=== PATIENT | male | born 1990 | race Caucasian/White ===

== ENCOUNTER 2017-11-02 12:05 | Emergency (ER) | payer OTHER ==
--- NOTE | 2017-11-02 15:52 | RAD REPORT ---
EXAM DESCRIPTION: [facility]11/02/2017 3:45 pm CLINICAL HISTORY: Right leg pain and swelling. COMPARISON: None. FINDINGS: Right common femoral, superficial femoral, popliteal and right posterior tibial veins are compressible and demonstrate augmentation. Doppler demonstrates good flow. IMPRESSION: No evidence of deep venous thrombosis involving the right lower extremity.
[2017-11-02 15:54] LABS: Urine Blood NEGATIVE (NEG); Urine Glucose NEGATIVE (NEG); Urine Protein NEGATIVE (NEG); Urine Specific Gravity 1.025 (1.005-1.030); Urine pH 5.5 (5.0-7.0)
[2017-11-02 16:14] LABS: Absolute Lymphocytes (CBC) 2.2 K/uL (0.7-4.9); Absolute Monocytes 0.5 K/uL (0.1-1.3); Absolute Neutrophil 7.7 K/uL (1.8-8.0); Basophils % 0.3 % (0-1.3); Eosinophils % 1.7 % (0-4.4); Hematocrit 44.7 % (39.6-49.0); MCH 30.4 pg (27.0-35.0); MCV 89.8 fL (80-100); MPV 8.9 fL (7.6-11.3); RBC Red Blood Cell Count 4.97 M/uL (4.33-5.43)
[2017-11-02 16:26] LABS: Potassium 3.9 mEq/L (3.6-5.0)
[2017-11-02 16:29] LABS: Bilirubin Total 0.4 mg/dL (0.3-1.2); Protein, Total 8.2 g/dL (6.0-8.3)
--- NOTE | 2017-11-02 17:04 | EDPHYS ---
Physician Documentation [facility] Name: Shon Cuellar Age: 27 yrs Sex: Male : 1990 Arrival Date: 11/02/2017 Time: 12:09 Bed 25 Private MD: Unknown, Unknown ED Physician Conor Salazar HPI: 11/02 15:06 This 27 yrs old Male presents to ER via Ambulatory with complaints of Foot jmm Pain. 15:06 The patient presents with pain, that is acute, swelling. The complaints affect the jmm dorsum of left foot, lateral aspect of right foot, medial aspect of right foot and dorsum of right foot. Onset: The symptoms/episode began/occurred gradually, 1 day(s) ago. This is a 27 year old male with no chronic medical conditions that presents to the ED with swelling to the right and left foot. Patient states having a similar episode 1 year ago when diagnosed with cellulitis. The patient denies fever. patient states he is [place] often [place]. . Historical: - Allergies: 12:11 No Known Allergies; sv - Home Meds: 12:11 None [Active]; sv - PMHx: 12:11 None; sv - PSHx: 12:11 None; sv - Immunization history:: Adult Immunizations up to date, Last tetanus immunization: < 5 years ago. - Social history:: Smoking status: Patient uses tobacco products, chewing tobacco. - Ebola Screening: : No symptoms or risks identified at this time. ROS: 15:06 Constitutional: Negative for fever, chills, and weight loss, Cardiovascular: Negative jmm for chest pain, palpitations, and edema, Respiratory: Negative for shortness of breath, cough, wheezing, and pleuritic chest pain. 15:06 MS/extremity: Positive for pain, swelling. 15:06 Skin: Positive for erythema. 15:06 All other systems are negative. Exam: 15:06 Head/Face: atraumatic. jmm 15:06 Constitutional: The patient appears in no acute distress, alert, awake. 15:06 Cardiovascular: Rate: normal, Rhythm: regular, Pulses: no pulse deficits are appreciated. 15:06 Respiratory: the patient does not display signs of respiratory distress, Respirations: normal. 15:06 Abdomen/GI: Inspection: abdomen appears normal. 15:06 Musculoskeletal/extremity: swelling noted to the right lower leg. swelling is also noted to the left foot. no pitting edema appreciated. Full dorsalis pedis pulse bilaterally, compartments are soft, NVI. 15:06 Skin: mild erythema noted to the right lower leg and foot, no erythema noted to the left foot. 15:06 Neuro: Orientation: is normal, Mentation: is normal. Vital Signs: 12:11 BP 152 / 83; Pulse 70; Resp 16; Temp 98.6; Pulse Ox 100% ; Weight 95.25 kg; Height 5 sv ft. 11 in. (180.34 cm); Pain 2/10; 15:54 BP 128 / 69; Pulse 82; Resp 16; Pulse Ox 98% on R/A; eb1 12:11 Body Mass Index 29.29 (95.25 kg, 180.34 cm) sv MDM: 14:58 Patient medically screened. [facility] 15:06 Differential diagnosis: cellulitis, DVT. [facility] 17:24 Data reviewed: vital signs, nurses notes, lab test result(s), radiologic studies, [facility] ultrasound. ED course: Symptoms appear consistent with previous diagnosis of cellulitis. labs and imaging studies are unremarkable. patient will be prescribed antibiotics. patient is advised to return to the ed if he develops worsening symptoms. patient understood and agrees with the plan of care. . 17:24 Counseling: I had a detailed discussion with the patient and/or guardian regarding: the [facility] presence of at least one elevated blood pressure reading (>120/80) during this emergency department visit. 11/02 15:02 Order name: CBC with Diff; Complete Time: 16:44 [facility] 11/02 15:02 Order name: CMP; Complete Time: 16:44 [facility] 11/02 15:02 Order name: Lactate; Complete Time: 16:44 [facility] 11/02 15:02 Order name: Blood Culture Adult (2) [facility] 11/02 15:42 Order name: Urine Dipstick--Ancillary (enter results) 1 11/02 15:43 Order name: Urine Dipstick-Ancillary; Complete Time: 16:03 [facility] 11/02 15:02 Order name: Saline Lock; Complete Time: 16:35 [facility] 11/02 15:03 Order name: US Extremity Venous Unilateral Ltd; Complete Time: 16:03 [facility] Administered Medications: 17:21 Drug: Doxycycline 100 mg Route: PO; eb1 17:53 Follow up: Response: No adverse reaction eb1 Disposition: 11/02/17 17:04 Discharged to Home. Impression: Cellulitis of right lower limb. - Condition is Stable. - Discharge Instructions: Cellulitis. - Prescriptions for Cephalexin 500 mg Oral Capsule - take 1 capsule by ORAL route every 6 hours for 10 days; 40 capsule. Doxycycline Hyclate 100 mg Oral Tablet - take 1 tablet by ORAL route every 12 hours; 20 tablet. - Medication Reconciliation Form, Thank You Letter, Antibiotic Education, Prescription Opioid Use, Work release form form. - Follow up: Private Physician; When: 1 - 2 days; Reason: Re-evaluation by your physician. Addendum: 11/06/2017 12:05 Co-signature as Attending Physician, Conor Salazar MD. g s Signatures: Dispatcher [employer] EDIrina Tai, RN RN Agustín New PA PA jmm Starr, Gregory, MD MD Lissy Mckeon RN RN eb1 Corrections: (The following items were deleted from the chart) 11/02 17:54 17:04 11/02/2017 17:04 Discharged to Home. Impression: Cellulitis of right lower limb. eb1 Condition is Stable. Forms are Medication Reconciliation Form, Thank You Letter, Antibiotic Education, Prescription Opioid Use. Follow up: Private Physician; When: 1 - 2 days; Reason: Re-evaluation by your physician. luke
--- NOTE | 2017-11-02 17:04 | ER ---
Nurse's Notes [facility] Name: Shon Cuellar Age: 27 yrs Sex: Male : 1990 Arrival Date: 11/02/2017 Time: 12:09 Bed 25 Private MD: Unknown, Unknown Diagnosis: Cellulitis of right lower limb Presentation: 11/02 12:09 Presenting complaint: Patient states: bilateral foot swelling and redness, right > sv left, started last night. Transition of care: patient was not received from another setting of care. Onset of symptoms was November 01, 2017. Care prior to arrival: None. 12:09 Method Of Arrival: Ambulatory sv 12:09 Acuity: MANNY 3 sv 15:52 Risk Assessment: Do you want to hurt yourself or someone else? Patient reports no eb1 desire to harm self or others. Initial Sepsis Screen: Does the patient meet any 2 criteria? No. Patient's initial sepsis screen is negative. Does the patient have a suspected source of infection? No. Patient's initial sepsis screen is negative. Triage Assessment: 12:09 General: Appears in no apparent distress. uncomfortable, Behavior is calm, cooperative, sv appropriate for age. Pain: Complains of pain in right foot and left foot Pain currently is 2 out of 10 on a pain scale. Pain began 1 day ago. Is continuous. Neuro: Level of Consciousness is awake, alert, obeys commands, Oriented to person, place, time, situation, Moves all extremities. Full function Gait is steady, Speech is normal. Respiratory: Respiratory effort is even, unlabored, Respiratory pattern is regular, symmetrical. Derm: Skin is normal. Musculoskeletal: Range of motion: intact in all extremities, Swelling present in right foot and left foot right foot has greater swelling than the left, redness noted to bilateral feet as well. Historical: - Allergies: 12:11 No Known Allergies; sv - Home Meds: 12:11 None [Active]; sv - PMHx: 12:11 None; sv - PSHx: 12:11 None; sv - Immunization history:: Adult Immunizations up to date, Last tetanus immunization: < 5 years ago. - Social history:: Smoking status: Patient uses tobacco products, chewing tobacco. - Ebola Screening: : No symptoms or risks identified at this time. Screenin:51 Abuse screen: Denies threats or abuse. Nutritional screening: No deficits noted. eb1 Tuberculosis screening: No symptoms or risk factors identified. Fall Risk None identified. Assessment: 15:49 General: Appears uncomfortable, well groomed, Behavior is calm, cooperative, eb1 appropriate for age. Pain: Complains of pain in right foot. Neuro: No deficits noted. Cardiovascular: No deficits noted. Respiratory: No deficits noted. GI: No deficits noted. : No deficits noted. Derm: Skin is pink, warm \T\ dry. red in right foot Skin temperature is warm right foot hot and inflammed. Musculoskeletal: Reports pain in right foot. Vital Signs: 12:11 BP 152 / 83; Pulse 70; Resp 16; Temp 98.6; Pulse Ox 100% ; Weight 95.25 kg; Height 5 sv ft. 11 in. (180.34 cm); Pain 2/10; 15:54 BP 128 / 69; Pulse 82; Resp 16; Pulse Ox 98% on R/A; eb1 12:11 Body Mass Index 29.29 (95.25 kg, 180.34 cm) sv ED Course: 12:09 Patient arrived in ED. sb2 12:09 Unknown, Unknown is Private Physician. sb2 12:11 Triage completed. sv 12:12 Arm band placed on left wrist. sv 12:12 Patient placed in waiting room, Patient notified of wait time. sv 14:24 Agustín Breaux PA is PHCP. jmm 14:24 Conor Salazar MD is Attending Physician. jmm 14:29 Patient placed in an exam room, on a stretcher. sv 15:28 Ultrasound completed. Patient tolerated well. ap2 15:45 Missed attempt(s): 22 gauge in left forearm. Bleeding controlled, band aid applied, tt1 catheter tip intact. 15:52 Patient has correct armband on for positive identification. Bed in low position. Call eb1 light in reach. Side rails up X 1. 16:05 Inserted saline lock: 22 gauge in left antecubital area, using aseptic technique. Blood tt1 collected. 16:34 Urine Dipstick--Ancillary (enter results) Sent. eb1 16:38 No provider procedures requiring assistance completed. eb1 17:54 IV discontinued, intact, bleeding controlled, No redness/swelling at site. Pressure eb1 dressing applied. Administered Medications: 17:21 Drug: Doxycycline 100 mg Route: PO; eb1 17:53 Follow up: Response: No adverse reaction eb1 Outcome: 17:04 Discharge ordered by MD. butler 17:53 Discharged to home ambulatory. eb1 17:53 Condition: stable 17:53 Discharge instructions given to patient, Instructed on discharge instructions, follow up and referral plans. medication usage, Demonstrated understanding of instructions, follow-up care, medications, Prescriptions given X 2. 17:54 Patient left the ED. eb1 Signatures: Dispatcher [employer] Irina Ferrer, RN RN Agustín New PA PA jmm Thymes, Tracy tt1 Mona Brizuela ap2 Bharti Christina sb2 Lissy Mckeon RN RN eb1 Corrections: (The following items were deleted from the chart) 15:46 15:45 In radiology for Extremity Venous Uni [email or web address] ap2 16:07 16:05 Inserted saline lock: 22 gauge in left antecubital area, using aseptic technique. tt1 tt1
[2017-11-02] MEDS ORDERED: DOXYCYCLINE 100 MG CAP PO ONE (17:17)
[2017-11-02 18:07] VITALS: TEMP 98.6
[2017-11-02 18:08] VITALS: BP 128/69; O2SAT 98
== END 2017-11-02 17:54 | disposition home or self-care (01) ==
LOC: ER 12:05
DX: L03.115 Cellulitis of right lower limb (principal); Z72.0 Tobacco use
CPT/HCPCS: 36415; 80053; 81003; 83605; 85025; 87040; 93971; 99284

== ENCOUNTER 2023-03-10 00:37 | Emergency (ER) | payer BC ==
[2023-03-10 01:15] LABS: Absolute Lymphocytes (CBC) 1.7 K/uL (0.7-4.9); Hematocrit 39.5 % (39.6-49.0); Lymphocytes % 13.9 % (15.3-44.8); MCV 89.4 fL (80-100); MPV 7.9 fL (7.6-11.3); Platelets 247 thou/uL (152-406); RBC Red Blood Cell Count 4.42 M/uL (4.33-5.43)
[2023-03-10] MEDS ORDERED: DIPHENHYDRAMINE 50 MG/ML VIAL ONE (01:15)
[2023-03-10] MEDS ORDERED: METHYLPREDNISOLONE 125 MG INJ ONE (01:15)
[2023-03-10] MEDS ORDERED: NA CHLORIDE 0.9% 1,000 ML ONE ×2 (01:15→02:44)
[2023-03-10] MEDS ORDERED: FAMOTIDINE 20 MG/2 ML VIAL IV ONE (01:15)
[2023-03-10 01:17] LABS: Protime INR 1.08
[2023-03-10 01:49] LABS: ALT/SGPT 24 U/L (16-61); AST/SGOT < 4 U/L (15-37); Alkaline Phosphatase 51 U/L (45-117); BUN Blood Urea Nitrogen 18 mg/dL (7-18); Bicarbonate 28 mEq/L (21-32); Bilirubin Total 0.3 mg/dL (0.2-1.0); C-Reactive Protein 2.97 mg/L (<3.00); Glomerular Filtration Rate 74 ml/min (=/>90); Glucose Level 105 mg/dL (74-106); Potassium 4.4 mEq/L (3.5-5.1); Protein, Total 7.6 g/dL (6.4-8.2); Sodium Level 138 mEq/L (136-145)
[2023-03-10] MEDS ORDERED: CEFAZOLIN SODIUM 1 GM/VIAL ONE (02:44)
[2023-03-10] MEDS ORDERED: SMZ./TMP. 800/160 MG TABLET ONE (02:44)
--- NOTE | 2023-03-10 02:50 | ER ---
Nurse's Notes [facility] Name: Shon Cuellar Age: 32 yrs Sex: Male : 1990 Arrival Date: 03/10/2023 Time: 00:37 Bed 7 Private MD: Diagnosis: Dermatitis, unspecified;Rash and other nonspecific skin eruption;Elevated white blood cell count, unspecified;Essential (primary) hypertension Presentation: 03/10 00:50 Chief complaint: Patient states: rash with hives that started Friday and has as6 progressively gotten worse. pt did see provider and has been taking Benadryl and steroids. Coronavirus screen: At this time, the client does not indicate any symptoms associated with coronavirus-19. Ebola Screen: No symptoms or risks identified at this time. Initial Sepsis Screen: Does the patient meet any 2 criteria? No. Patient's initial sepsis screen is negative. Does the patient have a suspected source of infection? No. Patient's initial sepsis screen is negative. Risk Assessment: Do you want to hurt yourself or someone else? Patient reports no desire to harm self or others. Onset of symptoms was March 07, 2023. 00:50 Acuity: MANNY 3 as6 00:50 Method Of Arrival: Ambulatory as6 Triage Assessment: 00:50 General: Appears uncomfortable, Behavior is calm, cooperative, appropriate for age. bp Pain: Denies pain. Historical: - Allergies: 00:50 No Known Allergies; as6 - Home Meds: 00:50 None [Active]; as6 - PMHx: 00:50 None; as6 - PSHx: 00:50 None; as6 - Immunization history:: Client reports having NOT received the Covid vaccine. - Social history:: Smoking status: Patient reports use of chewing tobacco. Patient denies any tobacco usage or history of. Screenin:00 [facility] ED Fall Risk Assessment (Adult) History of falling in the last 3 months, bp including since admission No falls in past 3 months (0 pts). Abuse screen: Denies threats or abuse. Denies injuries from another. Nutritional screening: No deficits noted. Tuberculosis screening: No symptoms or risk factors identified. Assessment: 00:50 General: SEE TRIAGE NOTE. bp 02:00 Reassessment: No changes from previously documented assessment. Patient is alert, bp oriented x 3, equal unlabored respirations, skin warm/dry/pink. Respiratory: Airway is patent Respiratory effort is even, unlabored, Breath sounds are clear bilaterally. 03:00 Reassessment: DC ON HOLD FOR IVF. bp Vital Signs: 00:49 BP 167 / 105; Pulse 86; Resp 18 S; Temp 97.7(O); Pulse Ox 100% on R/A; Weight 104.33 kg as6 (R); Height 5 ft. 11 in. (R); Pain 5/10; 02:00 BP 128 / 88; Pulse 62; Resp 16; Pulse Ox 100% ; bp 03:19 BP 141 / 97; Pulse 76; Resp 16; Pulse Ox 100% ; bp 04:11 BP 136 / 82; Pulse 65; Resp 16; Pulse Ox 100% ; bp 00:49 Body Mass Index 32.08 (104.33 kg, 180.34 cm) as6 00:49 Pain Scale: Adult as6 ED Course: 00:41 Patient arrived in ED. mr 00:42 Jake Osborn MD is Attending Physician. david 00:49 Arm band placed on. as6 00:52 Triage completed. as6 01:00 Toni Musa, BEVERLY is Primary Nurse. jb4 01:00 Patient has correct armband on for positive identification. Bed in low position. Call bp light in reach. Side rails up X2. 01:00 Inserted saline lock: 22 gauge in left antecubital area, using aseptic technique. Blood bp collected. 04:10 No provider procedures requiring assistance completed. IV discontinued, intact, bp bleeding controlled, No redness/swelling at site. Pressure dressing applied. Administered Medications: 01:10 Drug: NS 0.9% IV 1000 ml IV at 1 bolus Per protocol; 1000 mL bolus Route: IV; Rate: 1 bp bolus; Site: left antecubital; 03:20 Follow up: IV Status: Completed infusion; IV Intake: 1000ml bp 01:10 Drug: diphenhydrAMINE IVP 50 mg IVP once Route: IVP; Site: left antecubital; bp 03:20 Follow up: Response: No adverse reaction bp 01:10 Drug: Famotidine IVP 40 mg IVP once; dilute with 10 mL 0.9% NaCl; give over 2 minutes bp Route: IVP; Site: left antecubital; 03:20 Follow up: Response: No adverse reaction bp 01:10 Drug: MethylPrednisoLONE IVP 125 mg IVP once Route: IVP; Site: left antecubital; bp 03:20 Follow up: Response: No adverse reaction bp 02:15 Drug: NS 0.9% IV 1000 ml IV at 1 bolus Per protocol; 1000 mL bolus Route: IV; Rate: 1 bp bolus; Site: left antecubital; 04:11 Follow up: IV Status: Completed infusion; IV Intake: 1000ml bp 02:15 Drug: ceFAZolin IVPB 2 grams IVPB once over 30 mins; (mix in 100 mL NS) Route: IVPB; bp Infused Over: 30 mins; Site: left antecubital; 04:11 Follow up: IV Status: Completed infusion; IV Intake: 100ml bp 02:15 Drug: Trimethoprim-Sulfamethoxazole PO (160 mg-800 mg (DS) 1 tablet PO once Route: PO; bp 03:20 Follow up: Response: No adverse reaction bp Intake: 03:20 IV: 1000ml; Total: 1000ml. bp 04:11 IV: 100ml; Total: 1100ml. bp 04:11 IV: 1000ml; Total: 2100ml. bp Outcome: 02:49 Discharge ordered by . david 04:10 Discharged to home ambulatory, bp 04:10 Condition: stable 04:10 Discharge instructions given to patient, Instructed on discharge instructions, follow up and referral plans. medication usage, Demonstrated understanding of instructions, follow-up care, medications, Prescriptions given X 4, 04:11 Patient left the ED. bp Signatures: Jake Osborn MD MD cha Rivera, Mary, Reg Reg mr Toni Musa, RN RN jb4 Esdras Gaona RN RN bp Aram Louis, BEVERLY RN as6 Corrections: (The following items were deleted from the chart) 00:50 00:50 Allergies: Unable to obtain; as6 as6
--- NOTE | 2023-03-10 02:50 | EDPHYS ---
Physician Documentation [facility] Name: Shon Cuellar Age: 32 yrs Sex: Male : 1990 Arrival Date: 03/10/2023 Time: 00:37 Bed 7 Private MD: ED Physician Jake Osborn HPI: 03/10 00:52 This 32 yrs old Male presents to ER via Ambulatory with complaints of david Allergic Reaction, Hives. 00:52 The patient presents with rash, redness of skin. Onset: The symptoms/episode david began/occurred 5 day(s) ago. Associated signs and symptoms: Pertinent positives: hives. Possible causes: The patient has no known obvious cause for the symptoms. At home the patient or guardian has treated the symptoms with Benadryl, steroids. Severity of symptoms: At their worst the symptoms were moderate in the emergency department the symptoms are unchanged. The patient has not experienced similar symptoms in the past. Historical: - Allergies: 00:50 No Known Allergies; as6 - Home Meds: 00:50 None [Active]; as6 - PMHx: 00:50 None; as6 - PSHx: 00:50 None; as6 - Immunization history:: Client reports having NOT received the Covid vaccine. - Social history:: Smoking status: Patient reports use of chewing tobacco. Patient denies any tobacco usage or history of. ROS: 00:53 Constitutional: Negative for fever, chills, and weight loss, Eyes: Negative for injury, david pain, redness, and discharge, ENT: Negative for injury, pain, and discharge, Neck: Negative for injury, pain, and swelling, Cardiovascular: Negative for chest pain, palpitations, and edema, Respiratory: Negative for shortness of breath, cough, wheezing, and pleuritic chest pain, Abdomen/GI: Negative for abdominal pain, nausea, vomiting, diarrhea, and constipation, Back: Negative for injury and pain, : Negative for injury, bleeding, discharge, and swelling, MS/Extremity: Negative for injury and deformity, Neuro: Negative for headache, weakness, numbness, tingling, and seizure, Psych: Negative for depression, anxiety, suicide ideation, homicidal ideation, and hallucinations, Allergy/Immunology: Negative for hives, rash, and allergies, Endocrine: Negative for neck swelling, polydipsia, polyuria, polyphagia, and marked weight changes, Hematologic/Lymphatic: Negative for swollen nodes, abnormal bleeding, and unusual bruising, 00:53 Skin: Positive for rash, of the buttocks, pelvis, right arm, left arm, right leg and left leg, Exam: 00:53 Constitutional: This is a well developed, well nourished patient who is awake, alert, david and in no acute distress. Head/Face: Normocephalic, atraumatic. Eyes: Pupils equal round and reactive to light, extra-ocular motions intact. Lids and lashes normal. Conjunctiva and sclera are non-icteric and not injected. Cornea within normal limits. Periorbital areas with no swelling, redness, or edema. ENT: Nares patent. No nasal discharge, no septal abnormalities noted. Tympanic membranes are normal and external auditory canals are clear. Oropharynx with no redness, swelling, or masses, exudates, or evidence of obstruction, uvula midline. Mucous membranes moist. Neck: Trachea midline, no thyromegaly or masses palpated, and no cervical lymphadenopathy. Supple, full range of motion without nuchal rigidity, or vertebral point tenderness. No Meningismus. Chest/axilla: Normal chest wall appearance and motion. Nontender with no deformity. No lesions are appreciated. Cardiovascular: Regular rate and rhythm with a normal S1 and S2. No gallops, murmurs, or rubs. Normal PMI, no JVD. No pulse deficits. Respiratory: Lungs have equal breath sounds bilaterally, clear to auscultation and percussion. No rales, rhonchi or wheezes noted. No increased work of breathing, no retractions or nasal flaring. Abdomen/GI: Soft, non-tender, with normal bowel sounds. No distension or tympany. No guarding or rebound. No evidence of tenderness throughout. Back: No spinal tenderness. No costovertebral tenderness. Full range of motion. Male : Normal genitalia with no discharge or lesions. Neuro: Awake and alert, GCS 15, oriented to person, place, time, and situation. Cranial nerves II-XII grossly intact. Motor strength 5/5 in all extremities. Sensory grossly intact. Cerebellar exam normal. Normal gait. Psych: Awake, alert, with orientation to person, place and time. Behavior, mood, and affect are within normal limits. 00:53 Skin: cellulitis, on the buttocks, pelvis, right arm, left arm, right leg and left leg, Vital Signs: 00:49 BP 167 / 105; Pulse 86; Resp 18 S; Temp 97.7(O); Pulse Ox 100% on R/A; Weight 104.33 kg as6 (R); Height 5 ft. 11 in. (R); Pain 5/10; 02:00 BP 128 / 88; Pulse 62; Resp 16; Pulse Ox 100% ; bp 03:19 BP 141 / 97; Pulse 76; Resp 16; Pulse Ox 100% ; bp 04:11 BP 136 / 82; Pulse 65; Resp 16; Pulse Ox 100% ; bp 00:49 Body Mass Index 32.08 (104.33 kg, 180.34 cm) as6 00:49 Pain Scale: Adult as6 MDM: 00:42 Patient medically screened. david 00:57 Differential diagnosis: allergic reaction, anaphylaxis, angioedema, Mastocystosis david urticaria. Data reviewed: vital signs, nurses notes, lab test result(s). Consideration of Admission/Observation Patient was admitted/placed on observation. Escalation of care including admission/observation considered. I considered the following discharge prescriptions or medication management in the emergency department Medications were administered in the Emergency Department. See MAR. Test considered but Not performed: X-ray: no x rays. Historians other than the Patient: pt only, well informed. Care significantly affected by the following chronic conditions: none. Counseling: I had a detailed discussion with the patient and/or guardian regarding the historical points, exam findings, and any diagnostic results supporting the discharge/admit diagnosis, lab results, the need for outpatient follow up, for definitive care, a sales and marketing agent, a family practitioner. 03/10 00:50 Order name: CBC with Diff; Complete Time: 01:49 david 03/10 00:50 Order name: PT-INR; Complete Time: 01:21 david 03/10 00:50 Order name: Comprehensive Metabolic Panel; Complete Time: 01:51 david 03/10 00:50 Order name: Urinalysis w/ reflexes david 03/10 00:51 Order name: CRP; Complete Time: 01:51 david 03/10 01:50 Order name: Blood Culture Adult (2) david 03/10 01:50 Order name: Lactate w/ 2H reflex if indic. david Administered Medications: 01:10 Drug: NS 0.9% IV 1000 ml IV at 1 bolus Per protocol; 1000 mL bolus Route: IV; Rate: 1 bp bolus; Site: left antecubital; 03:20 Follow up: IV Status: Completed infusion; IV Intake: 1000ml bp 01:10 Drug: diphenhydrAMINE IVP 50 mg IVP once Route: IVP; Site: left antecubital; bp 03:20 Follow up: Response: No adverse reaction bp 01:10 Drug: Famotidine IVP 40 mg IVP once; dilute with 10 mL 0.9% NaCl; give over 2 minutes bp Route: IVP; Site: left antecubital; 03:20 Follow up: Response: No adverse reaction bp 01:10 Drug: MethylPrednisoLONE IVP 125 mg IVP once Route: IVP; Site: left antecubital; bp 03:20 Follow up: Response: No adverse reaction bp 02:15 Drug: NS 0.9% IV 1000 ml IV at 1 bolus Per protocol; 1000 mL bolus Route: IV; Rate: 1 bp bolus; Site: left antecubital; 04:11 Follow up: IV Status: Completed infusion; IV Intake: 1000ml bp 02:15 Drug: ceFAZolin IVPB 2 grams IVPB once over 30 mins; (mix in 100 mL NS) Route: IVPB; bp Infused Over: 30 mins; Site: left antecubital; 04:11 Follow up: IV Status: Completed infusion; IV Intake: 100ml bp 02:15 Drug: Trimethoprim-Sulfamethoxazole PO (160 mg-800 mg (DS) 1 tablet PO once Route: PO; bp 03:20 Follow up: Response: No adverse reaction bp Disposition Summary: 03/10/23 02:49 Discharge Ordered Notes: Location: Home david Problem: new david Symptoms: have improved david Condition: Stable david Diagnosis - Dermatitis, unspecified david - Rash and other nonspecific skin eruption david - Elevated white blood cell count, unspecified david - Essential (primary) hypertension david Followup: david - With: Private Physician - When: 2 - 3 days - Reason: Recheck today's complaints, Continuance of care, Re-evaluation by your physician Discharge Instructions: - Discharge Summary Sheet david - Hives david - Hypertension, Adult david - Rash, Adult david - Hypertension, Adult, [id number] david - Rash, Adult, [id number] david - How to Take Your Blood Pressure, [id number] david - Hives, [id number]-[id number] david - Leukocytosis david - Managing Your Hypertension [facility] Forms: - Medication Reconciliation Form david - Thank You Letter david - Antibiotic Education david - Prescription Opioid Use david - Patient Portal Instructions david - Leadership Thank You Letter david - Work release form bp Prescriptions: - Benadryl 25 mg Oral capsule - take 2 capsule ORAL route every 6 hours As needed; 45 tablet; Refills: 0, [facility] Product Selection Permitted - Cephalexin 500 mg Oral capsule - take 1 capsule ORAL route every 6 hours for 7 days; 28 capsule; Refills: 0, [facility] Product Selection Permitted - Pepcid 20 mg Oral tablet - take 1 tablet ORAL route every 12 hours for 21 days; 42 tablet; Refills: 0, [facility] Product Selection Permitted - Bactrim DS 800-160 mg Oral Tablet - take 1 tablet ORAL route every 12 hours for 7 days; 14 tablet; Refills: 0, [facility] Product Selection Permitted - Prednisone 20 mg Oral Tablet - take 2 tablets ORAL route once daily for 5 days; 10 tablet; Refills: 0, Product [facility] Selection Permitted Signatures: Dispatcher [employer] Jake Mahajan MD MD cha Peltier, Brian, RN RN Aram Vidal RN RN as6 Corrections: (The following items were deleted from the chart) 00:50 00:50 Allergies: Unable to obtain; as6 as6
[2023-03-10 03:35] LABS: Specific Gravity 1.022 (1.005-1.030); Urine Bilirubin NEGATIVE (Negative); Urine Blood Negative (Negative); Urine Clarity Clear (Clear); Urine Color Light-Yellow (Yellow); Urine Glucose NEGATIVE (Negative); Urine Protein NEGATIVE (Negative); Urine Urobilinogen Normal (Normal)
[2023-03-10 04:18] VITALS: TEMP 97.7; O2SAT 100
[2023-03-10 04:21] VITALS: BP 136/82
== END 2023-03-10 04:11 | disposition home or self-care (01) ==
LOC: ER 00:37
DX: L30.9 Dermatitis, unspecified (principal); D72.829 Elevated white blood cell count, unspecified; I10 Essential (primary) hypertension; F17.220 Nicotine dependence, chewing tobacco, uncomplicated
CPT/HCPCS: 96365; 96361; 87040 ×2; 85025; 36415; 85610; 83605; 81003; 80053; 86140; 96375; 99284; 96366; J1200; J2930; J7030 ×2; J0690